=== PATIENT | female | born 1985 | race Caucasian/White ===

== ENCOUNTER 2018-11-07 13:22 | Observation (INO) | payer MEDICAID, OTHER ==
[2018-11-07 13:47] VITALS: BP 140/68
[2018-11-07] MEDS ORDERED: LACTATED RINGERS 1,000 ML IV SCH ×2 (14:30→16:30)
[2018-11-07] MEDS ORDERED: ONDANSETRON 2MG/ML, 2ML IVPush PRN (14:30)
[2018-11-07] MEDS ORDERED: ONDANSETRON 2MG/ML, 2ML ONE (14:35)
[2018-11-07 14:52] LABS: MICROSCOPIC AUTO
[2018-11-07 17:11] LABS: MICROSCOPIC NOT IND
== END 2018-11-07 18:09 | disposition home or self-care (01) ==
LOC: LDOP 13:22 → LDIP 16:36
PROVIDERS: ADMIT Obstetrics & Gynecology; ATTEND Obstetrics & Gynecology
DX: O21.2 Late vomiting of pregnancy (principal); Z3A.35 35 weeks gestation of pregnancy
CPT/HCPCS: 81001; 81003; 87086; 96361; 96374; G0378; J2405; J7120; 59025; 99201; G0463